=== PATIENT | male | born 1960 | race Caucasian/White ===

== ENCOUNTER → 2024-10-02 09:40 | Outpatient (REF) | payer OTHER, SELFPAY | LOC: HWRAD 09:40 | PROVIDERS: ATTENDING PHYSICIAN Internal Medicine | DX: M54.42 Lumbago with sciatica, left side (principal); G89.29 Other chronic pain | CPT/HCPCS: 72110 ==

== ENCOUNTER → 2025-03-25 13:45 | Outpatient (REF) | payer OTHER, SELFPAY | LOC: HWRAD 13:45 | PROVIDERS: ATTENDING PHYSICIAN Internal Medicine | DX: M25.551 Pain in right hip (principal) | CPT/HCPCS: 73502 ==

== ENCOUNTER 2025-06-19 06:03 | Day surgery (SDC) | payer OTHER, SELFPAY ==
--- NOTE | 2025-05-31 13:17 | CM ---
Demographics: confirmed
Living situation: with
Support Person Post Operatively:
History of
VN: history, but not on service
SNF: No
Outpatient: [facility] scheduled
Has patient purchased required equipment: yes
Pharmacy:[facility]
Post Operative Discharge Plan: [facility], and then transition to Outpatient
--- NOTE | 2025-06-05 09:48 | VNURNOTE ---
Patient is scheduled for an elective R DIANE on 06/19 - he is a same day patient with Dr Gonzalez. Spoke with patient prior to surgery. Introduced role of [facility] Liaison. Patient reports that he lives with his .
He has a cane and rolling walker.
PCP is Dr Nam Shirley
Discussed [facility] joint protocol and post surgical plans.
Reviewed that he will have VN services initially and will then start outpatient PT.
Patient selects [facility] for his home care needs and will go to outpatient PT on [address] Scheduled for 06/21 .
Patient is in agreement with plan and states that his will be home with him. Advised to bring RW with him day of surgery. Referral placed in [facility].
Plan: [facility] per [facility] joint protocol 06/19 then outpt PT on 06/21
[2025-06-10 08:54] LABS: Hematocrit 46.4 % (39.0-52.0); Hemoglobin 15.5 g/dL (13.0-18.0); Mean Corp Hgb Conc. 33.4 g/dL (33.0-37.0); Mean Corpuscular Volume 92.1 fL (80.0-94.0); Platelet Count 142 10^3/uL (130-400); Red Cell Dist. Width 12.6 % (11.5-14.5)
[2025-06-10 09:14] LABS: Glycohemoglobin (HgbA1c) 5.2 % (4.0-5.9)
[2025-06-10 09:24] LABS: ALT (SGPT) 18 U/L (0-50); AST (SGOT) 24 U/L (17-59); Albumin 4.6 g/dl (3.5-5.0); Alkaline Phosphatase 78 U/L (38-126); Blood Urea Nitrogen 15 mg/dl (9-20); Calcium 9.4 mg/dl (8.4-10.2); Carbon Dioxide 30 mmol/L (22-30); Chloride 107 mmol/L (98-107); Glucose 97 mg/dl (70-99); Potassium 4.3 mmol/L (3.5-5.1); Sodium 142 mmol/L (135-145); Total Protein 7.0 g/dl (6.3-8.2); eGFR 56.48
[2025-06-10 14:04] VITALS: BMI 26.9
[2025-06-10 18:02] VITALS: BMI 26.9
[2025-06-19] VITALS (9 sets, daily range): BP systolic 102–131; BP diastolic 55–65; BMI 26.9
[2025-06-19] MEDS: TYLENOL 650 MG PO (07:05)
[2025-06-19] MEDS: CELEBREX 200 MG PO (07:06)
[2025-06-19] MEDS: NORMOSOL-R/PLASMALYTE-A 1000 IV (07:06)
[2025-06-19] MEDS: ANCEF 5 IV (12:19)
== END 2025-06-19 12:45 | disposition home health service (06) ==
LOC: SDS 06:03
PROVIDERS: ATTENDING PHYSICIAN Orthopaedic Surgery; FAMILY PHYSICIAN Internal Medicine
DX: M16.11 Unilateral primary osteoarthritis, right hip (principal)
CPT/HCPCS: 27130; C1713; C1776; 73502; 80053; 83036; 85027; 87070; 97162

== ENCOUNTER → 2025-07-15 09:31 | Outpatient (REF) | payer OTHER, SELFPAY | LOC: RAD 09:31 | PROVIDERS: ATTENDING PHYSICIAN Orthopaedic Surgery; FAMILY PHYSICIAN Internal Medicine | DX: M79.661 Pain in right lower leg (principal) | CPT/HCPCS: 93971 ==